=== PATIENT | female | born 1950 | race Caucasian/White ===

== ENCOUNTER → 2018-03-15 | Day surgery (SDC) | payer MEDICARE, OTHER ==
[~2018-03-15] MED LIST: BIOT10TA PO; BUPIVACAINE HCL PF 0.75% 30 ML VIAL ONE; CYANOCOBALAMIN 1000 MCG/ML VIAL IM ONE; ESTR1.25 PO; PROPOFOL 200 MG/20 ML AMP IV ONE; SIMV40TA PO; TELM40 PO; TRIAMCINOLONE ACETONIDE 40 MG/ML VIAL NERV BLOCK ONE; VITA2000 PO; VITA500T35 PO
--- NOTE | 2018-03-15 10:16 | M6 ---
cc: Rob Stevens MD DATE: 03/15/2018 PROCEDURE PERFORMED: Right ilioinguinal nerve block. History and physical was completed and signed. Consent was signed. Procedure site was marked. Medications were listed and reconciled. Pain score was recorded. Allergies were noted. Time out was taken. Fluoroscopy time was recorded where applicable. Sedation was administered or directed by Dr. Stevens. The patient was given oxygen. The patient was monitored by a registered nurse. Total procedure time was greater than 15 minutes. PROCEDURE NOTE: IV was started. Blood pressure cuff pulse oximeter and EKG were applied. The patient was placed in the prone position, sedated with small amounts of propofol titrated to effect. Vital signs were monitored and remained stable throughout the procedure. Right inguinal area was prepped with alcohol and 10% Betadine solution. The area of greatest pain had been marked by the patient. Underneath that area, I could palpate a nodule which was painful to the patient. A 1.5 inch, 25-gauge needle was inserted into the nodule and the patient was given 5 mL of Marcaine 0.75%, 40 mg of Kenalog and 1000 mcg of B12 at that location. Following this, the patient was taken to the recovery room with stable vital signs neurologically intact. She will be evaluated immediately and with followup to determine if she has a subjective decrease in her usual pain and a corresponding objective increase in her functional capabilities. Rob Stevens MD [facility] , 10:04 AM , 10:15 AM
== END | disposition home or self-care (01) ==
LOC: PHSDC 08:49
PROVIDERS: ATTEND Pain Medicine Interventional Pain Medicine
DX: R10.31 Right lower quadrant pain (principal)
CPT/HCPCS: 64425; 99152; J3301; J3420